=== PATIENT | male | born 1985 | race Caucasian/White ===

== ENCOUNTER 2016-09-19 16:04 | Day surgery (SDC) | payer OTHER ==
--- NOTE | 2016-09-18 10:45 | HP ---
Armen MARTINEZ : 1985 V DATE OF SERVICE: September 18, 2016 PROPOSED DATE OF SURGERY: September 19, 2016 CHIEF COMPLAINT: Left foot injury. HISTORY OF PRESENT ILLNESS: This is a 31-year-old gentleman who dropped a sheet of cement board on his left foot on September 13, 2016 while at work sustaining an injury to his to his foot. He was seen at [facility] the next day due to persistent pain with weight-bearing where x-rays demonstrated a displaced fracture of his first metatarsal. He was referred here for evaluation. On presentation he is in a boot. He states that his foot only hurts when he puts weight on it. At rest it is a 2/10. It can get as bad as a 6/10 if he walks on it. He is using crutches. He is taking [id number] pain medication. He has had no previous injuries at the site and he has no other complaints. PAST MEDICAL HISTORY: No significant past medical history. PAST SURGICAL HISTORY: No significant past surgical history. REVIEW OF SYSTEMS: No recent constitutional symptoms to include fevers and chills. No recent cardiovascular symptoms to include chest pain or palpitations. No recent respiratory symptoms to include shortness of breath or recent infections. PHYSICAL EXAM: Patient is a well-developed, well-nourished no in no acute distress. They are awake, alert and conversant throughout the encounter. CARDIOVASCULAR: Intact peripheral pulses on bilateral upper extremities. No significant edema on inspection of bilateral upper extremities. NEUROLOGIC: Patient had intact coordinated composite motion of the bilateral upper extremities and sensation intact to light touch in all distributions of bilateral upper extremities. PSYCHIATRIC: Patient was oriented to person, place and time and displayed appropriate mood and affect during the encounter. SKIN: Exam of the skin on bilateral upper extremities showed no significant scars, lesions, rashes or masses. FOCUSED MUSCULOSKELETAL EXAM: The patient is ambulating with the assistance of crutches. He is nonweightbearing on the left lower extremity. After removal of this boot he has got ecchymosis and tenderness to palpation around the level of the MTP of his first ray of his left foot. He has no open lesions, moderate swelling. He has a well perfused foot with 2+ DP and PT pulses, and brisk capillary refill at the toe and sensation intact throughout. DIAGNOSTIC IMAGING: A review of his x-rays shows a fracture of the distal diaphyseal metaphyseal junction of the first metatarsal with valgus malalignment and medial translation of the distal fragment. ASSESSMENT: This is a 31-year-old male with a left first metatarsal fracture with unacceptable alignment parameters. PLAN: The plan will be for a closed reduction and percutaneous pinning versus open reduction internal fixation in the operating room tomorrow. The risks, benefits and alternatives were discussed with the patient and he elected to proceed. Informed consent was obtained and documented and he is placed on the schedule, we will see him tomorrow for surgery. Job [id number] STAT Cc: [facility]
[~2016-09-19 16:04] MED LIST: CEFAZOLIN SODIUM 2 GRAM PREMIX 100 ML IV ONE; IV START KIT ONE; LACTATED RINGERS 1,000 ML ONE
[2016-09-19] MEDS ORDERED: MIDAZOLAM HCL 1 MG/ML 2ML VIAL ONE (19:50)
[2016-09-19] MEDS ORDERED: FENTANYL 5 ML ONE (19:50)
[2016-09-19] MEDS ORDERED: ONDANSETRON 4 MG/2ML 2 ML VIAL ONE (20:13)
[2016-09-19] MEDS ORDERED: LIDOCAINE 2% (PRES FREE) 5 ML VIAL ONE (20:13)
[2016-09-19] MEDS ORDERED: PROPOFOL 20 ML IV ONE (20:13)
[2016-09-19] MEDS ORDERED: DEXAMETHASONE SOD PHOS 4 MG/1 ML VIAL ONE (20:13)
[2016-09-19] MEDS ORDERED: DIPHENHYDRAMINE HCL 50 MG/1 ML VIAL ONE (20:13)
[2016-09-19] MEDS ORDERED: ATROPINE SULFATE 0.4 MG/1 ML VIAL IV PRN (20:21)
[2016-09-19] MEDS ORDERED: NALOXONE HCL 0.4 MG/ML VIAL IV PRN (20:21)
[2016-09-19] MEDS ORDERED: FENTANYL 100 MCG/2 ML VIAL IV PRN (20:21)
[2016-09-19] MEDS ORDERED: PROMETHAZINE HCL 25 MG/ML VIAL IM PRN (20:21)
[2016-09-19] MEDS ORDERED: ONDANSETRON 4 MG/2ML 2 ML VIAL IV PRN ×2 (20:21→23:30)
[2016-09-19] MEDS ORDERED: LACTATED RINGERS 1,000 ML IV SCH ×2 (20:30→21:34)
--- NOTE | 2016-09-19 20:54 | PCMBPN ---
Brief Post Op Note: Date of Procedure: 09/19/16 Start Time: 1999 Preoperative Diagnosis: 1. left first metatarsal fracture Postoperative Diagnosis: 1. Same Procedure: left first metatarsal fracture closed reduction and percutaneous pinning Surgeon: Miguel Navarro MD Assist: Hugo Mckoy PA-C Anesthesia: Reuben Price Findings: as above Condition: stable to PACU Complications: non IV Fluids: 1200 mLs of LR Urine Output: 0 mLs Estimated Blood Loss: 1 mLs Tourniquet Time: none Specimens: none Implants: 2 x 0.062" k-wires Drains: none Miguel Navarro MD
[2016-09-19] MEDS ORDERED: HYDROMORPHONE HCL 1 MG/ML SYRINGE ONE (21:09)
[2016-09-19] MEDS: HYDROMORPHONE HCL 1 MG/ML SYRINGE IV PRN ×2 (21:11→21:18)
[2016-09-19] MEDS ORDERED: OXYCODONE/ACETAMINOPHEN 5/325 MG TABLET PO PRN (21:34)
[2016-09-19] MEDS ORDERED: ACETAMINOPHEN 325 MG TABLET PO PRN (21:34)
[2016-09-19] MEDS ORDERED: DIPHENHYDRAMINE HCL 50 MG/1 ML VIAL IV PRN (21:34)
[2016-09-19] MEDS ORDERED: HYDROMORPHONE HCL 1 MG/ML SYRINGE IV PRN (21:34)
[2016-09-19] MEDS ORDERED: HYDROMORPHONE HCL 0.5 MG/0.5 ML SYRINGE IV PRN (21:45)
[2016-09-19 21:58] VITALS: BMI 21.0
[2016-09-19 23:49] VITALS: BP 114/70
--- NOTE | 2016-09-20 07:56 | RAD ---
Exam: Two-view left foot COMPARISON: 09/14/2016 INDICATION: Left first metatarsal closed reduction. Findings: Fluoroscopy was provided for Dr. Navarro. 34 seconds of fluoroscopy time was utilized. 2 static images were submitted for interpretation. These images demonstrate 2 pins traversing the obliquely oriented fracture through the distal diaphysis of the first metatarsal. Fracture fragments haven't significantly changed in position. IMPRESSION: Fluoroscopy was provided for Dr. Navarro for left first metatarsal closed reduction.
--- NOTE | 2016-09-20 08:01 | RAD ---
Exam: Two-view left foot INDICATION: Intraoperative exam 09/19/2016 and 09/14/2016 radiographs INDICATION: Postop left foot. Status post CRPP left first metatarsal. FINDINGS: AP and lateral views of the left foot were obtained. Soft tissue swelling remains over the dorsum of the foot. 2 K wires traverse the mildly displaced oblique fracture through the distal diaphysis of the first metatarsal. Fracture fragments have not significant changed in position or alignment. There is mild medial displacement of the distal fracture fragment. IMPRESSION: Postop percutaneous pinning of the left first metatarsal fracture.
--- NOTE | 2016-09-20 10:49 | OP ---
Armen MARTINEZ IV : 1985 [id number] DATE OF SERVICE: September 19, 2016 PREOPERATIVE DIAGNOSIS: Left first metatarsal fracture. POSTOPERATIVE DIAGNOSIS: Left first metatarsal fracture. PROCEDURE PERFORMED: LEFT FIRST METATARSAL FRACTURE CLOSED REDUCTION AND PERCUTANEOUS PINNING. SURGEON: Miguel Navarro M.D. NEW [employer] DELIVERY DRIVER: Hugo Mckoy P.A.-C. ANESTHESIA: [place].N.Ember. ESTIMATED BLOOD LOSS: 1 mL FLUIDS REPLACED: 1,200 mL of crystalloid. URINE OUTPUT: None. TOURNIQUET TIME: None. IMPLANTS: Two 0.062 inch K-wires. INDICATIONS: This is a 31-year-old gentleman who sustained a fracture to his left first metatarsal. He was seen by orthopedics and examined. Radiographs demonstrated valgus and rotational displacement of this distal portion of his metatarsal which was unacceptable in terms of alignment. It was recommended that he undergo a closed reduction and percutaneous pinning in order to restore appropriate alignment. Risks, benefits and alternatives were discussed with the patient and he elected to proceed with surgery. Informed consent was obtained and documented in the chart and the patient was placed on the schedule the first available convenience. DESCRIPTION OF PROCEDURE: The patient was identified in the preoperative holding area where he was marked with an indelible marker by the operating surgeon. He was taken to the operating room where he was placed in the supine position on the operating room table. General anesthesia was induced. Perioperative antibiotics were administered. A well padded pre-calibrated nonsterile tourniquet was placed on his left upper thigh. He was prepped and draped in the usual sterile fashion for surgery. A final operative time out was performed and confirmed by all members of the operative team. The patient's knee was flexed up with the foot in plantar grade position on the end of the operating room table and c-arm guidance a longitudinal traction and rotation was applied to reduce the patient's fracture. We were able to reduce it to a position that we found appropriate so with traction held in this position a single 0.062 K-wire was placed percutaneously across the fracture beginning at the medial border of the foot and traversing the fracture perpendicular to the fracture plane. With this pin in position holding provisional reduction. A second K-wire was placed parallel to the first. The toe was then taken through a range of motion. AP and lateral projections were obtained which confirmed good reduction and stability of the fracture. The pins were bent over outside of the skin and excess pin length cutoff. Pin caps were placed. Xeroform was wrapped around the base of the pins and then a well padded dressing was applied and the patient was placed back into his fracture boot. The drapes were removed patient was awakened from his anesthesia and extubated in the operating room without difficulty and transferred to a stretcher and taken postoperatively to the postanesthesia care unit in stable condition. There were no observed intraoperative complications during this procedure. Job [id number] Cc: [facility]
== END 2016-09-19 23:37 | disposition home or self-care (01) ==
LOC: SDC 16:04 → MS 19:51 → SDC 23:37
PROVIDERS: ATTEND Orthopaedic Surgery
PROC: 0QSP35Z Reposition Left Metatarsal with External Fixation Device, Percutaneous Approach (ICD-10-PCS; principal; 2016-09-19)
DX: S92.312A Displaced fracture of first metatarsal bone, left foot, initial encounter for closed fracture (principal); S97.82XA Crushing injury of left foot, initial encounter; Y99.0 Civilian activity done for income or pay
CPT/HCPCS: 76000; 73620 ×2; 28476; A6453; J1200; J1170; J3010; J1100; A9270; J2250; J2405; J7120; J0690